=== PATIENT | male | born 1990 | race Caucasian/White ===

== ENCOUNTER 2019-09-23 14:04 | Emergency (ER) | payer OTHER ==
--- NOTE | 2019-09-23 14:50 | UC ---
Respiratory Complaint HPI - HPI Summary HPI Summary: 29-year-old male presents with 5 week history of a non-productive cough. States cough was mild at first and then worsened after about a week and has been persistent since that time. Reports a low grade fever of 99.3 F at onset of symptoms but none since that time. Cough associated with some mild post-nasal drip. Reports some fatigue over the past few days. He denies exposure to any one isolated for or testing positive for COVID-19. States he has been maintaining social distancing and isolating himself at home with his significant other who is presently without symptoms. Denies chest pain or shortness of breath. - History of Current Complaint Chief Complaint: UCGeneralIllness Stated Complaint: COUGH Pain Intensity: 0 - Allergies/Home Medications Allergies/Adverse Reactions: Allergies Allergy/AdvReac Type Severity Reaction Status Date / Time No Known Allergies Allergy Verified 09/23/19 14:19 Home Medications: Home Medications Azithromyxin XIMENA (NF) [Z-Ximena (Zithromax) 250 mg tabs #6] 2 tab PO .TODAY, THEN 1 DAILY #6 tab 09/23/19 [Rx] Benzonatate CAP* [Tessalon 100 MG CAP*] 100 mg PO TID PRN #21 cap 09/23/19 [Rx] PMH/Surg Hx/FS Hx/Imm Hx Previously Healthy: Yes - Denies significant PMH - Surgical History Surgical History: None - Family History Family History: Denies significant FMH - Social History Occupation: Employed Full-time Lives: With Family Alcohol Use: None Substance Use Type: None Smoking Status (MU): Never Smoked Tobacco Review of Systems All Other Systems Reviewed And Are Negative: Yes Constitutional: Positive: Fever - Low grade, Fatigue. Negative: Chills Eyes: Negative: Drainage, Eye Redness ENT: Positive: Other - PND. Negative: Sore Throat, Ear Ache, Nasal Discharge, Sinus Congestion, Sinus Pain/Tenderness Respiratory: Positive: Cough. Negative: Shortness Of Breath Cardiovascular: Negative: Chest Pain Gastrointestinal: Positive: Negative Genitourinary: Positive: Negative Musculoskeletal: Positive: Negative Neurological/Mental Status: Positive: Negative Is Patient Immunocompromised?: No Physical Exam - Summary Physical Exam Summary: Physical exam was limited due to use of telemedicine however patient displayed no respiratory distress while video conferencing with provider. Triage Information Reviewed: Yes Vital Signs Reviewed: Yes Respiratory Course/Dx - Course Course Of Treatment: 29-year-old male presents with 5 week history of a non-productive cough. States cough was mild at first and then worsened after about a week and has been persistent since that time. Reports a low grade fever of 99.3 F at onset of symptoms but none since that time. Cough associated with some mild post-nasal drip. Reports some fatigue over the past few days. He denies exposure to any one isolated for or testing positive for COVID-19. States he has been maintaining social distancing and isolating himself at home with his significant other who is presently without symptoms. Denies chest pain or shortness of breath. Patient was agreeable to conducting the visit by telemedicine via [employer]. Physical exam was limited however he did not appear to be in any acute respiratory distress. We discussed that based on his history I have a low suspicion for a COVID-19 infection but would recommend testing at this time to which the patient was agreeable. Patient was noted to be afebrile with stable vital signs. Considering the duration of his symptoms I am recommending treatment for an acute bronchitis with a course of azithromycin as well as symptomatic treatment including Tessalon Perles 1 cap every 8 hours as needed for cough. He is to return here or follow up with primary care in 7 days if symptoms are not improving. Anticipatory guidance and warning symptoms were reviewed with the patient. Verbalizes understanding and agrees with plan of care. - Differential Dx/Diagnosis Differential Diagnosis/HQI/PQRI: Bronchitis, Lower Resp Infection, SARS - COVID 19 Provider Diagnosis: Bronchitis Discharge ED - Sign-Out/Discharge Documenting (check all that apply): Patient Departure All imaging exams completed and their final reports reviewed: No Studies - Discharge Plan Condition: Stable Disposition: HOME Prescriptions: Azithromyxin XIMENA (NF) [Z-Ximena (Zithromax) 250 mg tabs #6] 2 tab PO .TODAY, THEN 1 DAILY #6 tab Benzonatate CAP* [Tessalon 100 MG CAP*] 100 mg PO TID PRN #21 cap PRN Reason: Cough Patient Education Materials: Acute Bronchitis (ED) Forms: COVID-19 Tested & Isolation Referrals: No Primary Care Phys,NOPCP [Primary Care Provider] - [facility]FERRAL [Outside] Additional Instructions: Your history and exam are consistent with acute bronchitis. Although I have a low suspicion for a COVID-19 infection I would recommend that we do testing at this time to rule this out. You will need to self-isolate for 14 days or until you have been instructed that you may discontinue. Considering the duration of your symptoms we will start you on an antibiotic at this time. Start azithromycin 2 tabs today then 1 tab a day for the next 4 days. Get plenty of rest. Drink plenty of fluids. Run a cool mist humidifer in your room at night. Take over the counter acetaminophen (Tylenol) or ibuprofen (Advil, Motrin) according to directions as needed for pain or fever. Take Tessalon Perles 1 cap every 8 hours as needed for cough. Return here or with primary care in 7 days if no improvement in symptoms. I have provided you with the contact information for the [facility] physician referral service if you need assistance with establishing with a primary care provider. Seek immediate medical attention in the emergency room if you have fever greater than 100.5 F despite taking acetaminophen or ibuprofen, have chest pain , difficulty breathing, or have any worsening of symptoms. - Billing Disposition and Condition Condition: STABLE Disposition: Home
[2019-09-23 15:04] VITALS: BP 127/86
--- NOTE | 2019-09-26 09:02 | UC ---
- Progress Note Progress Note: COVID test is negative. You do not need to continue to quarantine Continue to physical distance. If symptoms persist or worsen, recommend follow up with PCP or return to urgent care. Course/Dx - Diagnoses Provider Diagnoses: Bronchitis Discharge ED - Sign-Out/Discharge Documenting (check all that apply): Post-Discharge Follow Up All imaging exams completed and their final reports reviewed: No Studies - Discharge Plan Condition: Stable Disposition: HOME Prescriptions: Azithromyxin XIMENA (NF) [Z-Ximena (Zithromax) 250 mg tabs #6] 2 tab PO .TODAY, THEN 1 DAILY #6 tab Benzonatate CAP* [Tessalon 100 MG CAP*] 100 mg PO TID PRN #21 cap PRN Reason: Cough Patient Education Materials: Acute Bronchitis (ED) Forms: COVID-19 Tested & Isolation Referrals: [facility] PH[facility]IAN REFERRAL [Outside] No Primary Care Phys,NOPCP [Primary Care Provider] - Additional Instructions: Return here or with primary care in 7 days if no improvement in symptoms. I have provided you with the contact information for the [facility] physician referral service if you need assistance with establishing with a primary care provider. Seek immediate medical attention in the emergency room if you have fever greater than 100.5 F despite taking acetaminophen or ibuprofen, have chest pain , difficulty breathing, or have any worsening of symptoms. - Billing Disposition and Condition Condition: STABLE Disposition: Home
== END 2019-09-23 14:55 | disposition home or self-care (01) ==
LOC: UCCORT 14:04
DX: J40 Bronchitis, not specified as acute or chronic (principal); Z20.828 Contact with and (suspected) exposure to other viral communicable diseases
CPT/HCPCS: 87635; 99202; G0463; U0003